=== PATIENT | female | born 1985 | race Caucasian/White ===

== ENCOUNTER 2020-05-04 20:26 | Emergency (ER) | payer BC, MEDICAID ==
--- NOTE | 2020-05-05 08:51 | EDM.PDOC ---
ED HPI GENERAL MEDICAL PROBLEM - General Chief Complaint: [employer] Problem Stated Complaint: POSSIBLE MISCARRAGE Time Seen by Provider: 05/04/20 21:45 Source of Information: Reports: Patient History Limitations: Reports: No Limitations - History of Present Illness INITIAL COMMENTS - FREE TEXT/NARRATIVE: Patient presents with 1.5 hours of bright red vaginal bleeding, She has soaked 2 pantyliners. 2 positive home tests, approximately 7 weeks , LMP 03/10. This is the patient's 3rd . She is unsure of her blood type, but has not received Rhogam with previous pregnancies. Denies any abdominal kel or cramping, SOB, CP, passing clots. Her 1st OB visit is May 20 in [place]. She presents to ED for US. I informed patient that US is not available, but they will be in [place] tomorrow. We discussed doing a vaginal exam to visualize the cervix, patient declines at this time. also discussed doing blood work including a serum HCG, she also declines at this time. She feels that she would like to go home and return tomorrow for outpatient US. An order was submitted and US will call patient tomorrow for scheduling. She assured me she would return if bleeding became heavy, or if she developed any new concerning symptoms. Attempted bedside US without success, transvaginal US tomorrow. Improves with: Reports: None Worsens with: Reports: None Associated Symptoms: Reports: No Other Symptoms - Related Data Allergies Allergy/AdvReac Type Severity Reaction Status Date / Time No Known Allergies Allergy Verified 05/04/20 21:35 Home Meds: Home Meds NK [No Known Home Meds] 05/04/20 [History] Past Medical History [employer] History: Reports: , Other (See Below) Other [employer] History: possible miscarrage, 2 previous preg 2 live births via Social & Family History - Family History Family Medical History: Noncontributory - Tobacco Use Smoking Status *Q: Former Smoker Used Tobacco, but Quit: No - Caffeine Use Caffeine Use: Reports: None - Recreational Drug Use Recreational Drug Use: No ED ROS GENERAL - Review of Systems Review Of Systems: See Below Constitutional: Reports: No Symptoms HEENT: Reports: No Symptoms Respiratory: Reports: No Symptoms Cardiovascular: Reports: No Symptoms GI/Abdominal: Reports: No Symptoms. Denies: Abdominal Pain : Reports: Other (vaginal bleeding in ) Musculoskeletal: Reports: No Symptoms Skin: Reports: No Symptoms Neurological: Reports: No Symptoms Psychiatric: Reports: No Symptoms ED EXAM - Physical Exam Exam: See Below Exam Limited By: No Limitations General Appearance: Alert, No Apparent Distress Neck: Full Range of Motion Respiratory/Chest: No Respiratory Distress Cardiovascular: Regular Rate, Rhythm GI/Abdominal Exam: Soft, Non-Tender, No Mass (Female) Exam: Other (deferred at this time) Heart Tones: Not [place] Back Exam: Normal Inspection Extremities: Normal Inspection Neurological: Alert, Oriented Psychiatric: Normal Affect, Normal Mood, Tearful Skin Exam: Warm, Dry, Intact Course - Vital Signs Last Recorded V/S: Last Vital Signs Temp 97.6 F 05/04/20 20:30 Pulse 76 05/04/20 20:30 Resp 16 05/04/20 20:30 BP 121/82 05/04/20 20:30 Pulse Ox 99 05/04/20 20:30 Departure - Departure Time of Disposition: 20:50 Disposition: Home, Self-Care 01 Clinical Impression: Threatened - Discharge Information *PRESCRIPTION DRUG MONITORING PROGRAM REVIEWED*: Not Applicable *COPY OF PRESCRIPTION DRUG MONITORING REPORT IN PATIENT AC: Not Applicable Instructions: Vaginal Bleeding During , First Trimester, Threatened Miscarriage, [id number] Referrals: PCP,None [Primary Care Provider] - Forms: ED Department Discharge Sepsis Event Note (ED) - Evaluation Sepsis Screening Result: No Definite Risk
== END 2020-05-04 21:45 | disposition home or self-care (01) ==
LOC: LB.ED 20:26
DX: O20.0 Threatened abortion (principal); Z87.891 Personal history of nicotine dependence; Z3A.01 Less than 8 weeks gestation of pregnancy
CPT/HCPCS: 99283